=== PATIENT | male | born 1975 | race Two or more races ===

== ENCOUNTER 2025-02-27 14:31 | Emergency (ER) | payer OTHER ==
[2025-02-27 14:38] VITALS: BP 137/77; PULSE 74; RESP 20; TEMP 98.4; BMI 25.0
[2025-02-27] MEDS ORDERED: BACITRACIN ZINC 15 GM TUBE TOPICAL OINTMENT ONE (15:40)
[2025-02-27] MEDS: BACITRACIN ZINC 15 GM TUBE TOPICAL OINTMENT TP ONE (15:53)
[2025-02-27] MEDS ORDERED: DIPHTH,PERTUSS(ACELL),TET 0.5 ML DISP.SYRIN IM ONE (16:24)
[2025-02-27] MEDS: DIPHTH,PERTUSS(ACELL),TET 0.5 ML DISP.SYRIN IM ONE (16:28)
== END 2025-02-27 16:34 | disposition home or self-care (01) ==
LOC: JERFT 14:31
PROC: 3E0234Z Introduction of Serum, Toxoid and Vaccine into Muscle, Percutaneous Approach (ICD-10-PCS; principal; 2025-02-27)
DX: S81.802A Unspecified open wound, left lower leg, initial encounter (principal); W18.40XA Slipping, tripping and stumbling without falling, unspecified, initial encounter
CPT/HCPCS: 90471; 90715; 99284-25